=== PATIENT | male | born 1990 | race Caucasian/White ===

== ENCOUNTER 2016-05-21 19:43 | Emergency (ER) | payer SELFPAY ==
[2016-05-21 19:52] VITALS: RESP 16
[2016-05-21] MEDS ORDERED: Sodium Chloride 0.9% 1,000 ML IV ONE (19:56)
[2016-05-21] MEDS ORDERED: Sucralfate 1 gm/10 ml Oral Susp UD PO STA (19:56)
--- NOTE | 2016-05-21 19:57 | C.PDOC ---
History Of Present Illness 25 year old patient presents to the ED complaining of upper abdominal pain for the past 2 days. Patient states the pain is sharp and non-radiating. Patient denies nausea, vomiting, dysuria or hematuria. Time Seen by Provider: 05/21/16 19:55 Chief Complaint (Nursing): Abdominal Pain History Per: Patient History/Exam Limitations: no limitations Onset/Duration Of Symptoms: Days (2) Current Symptoms Are (Timing): Still Present Context: Other Severity: Moderate Pain Scale Rating Of: 4 Location Of Pain/Discomfort: Epigastric Radiation Of Pain To:: None Quality Of Discomfort: "Pain" Exacerbating Factors: None Alleviating Factors: None Last Bowel Movement: Today Recent travel outside of the [place]: No Past Medical History Reviewed: Historical Data, Nursing Documentation, Vital Signs Vital Signs: Last Vital Signs Temp 98.0 F 05/21/16 22:09 Pulse 60 05/21/16 22:09 Resp 16 05/21/16 22:09 BP 108/59 L 05/21/16 22:09 Pulse Ox 100 05/21/16 22:09 Family History: States: Unknown Family Hx - Social History Hx Tobacco Use: Yes Hx Alcohol Use: No Hx Substance Use: No - Immunization History Hx Tetanus Toxoid Vaccination: No Hx Influenza Vaccination: No Hx Pneumococcal Vaccination: No Review Of Systems Except As Marked, All Systems Reviewed And Found Negative. Gastrointestinal: Positive for: Abdominal Pain (epigastric). Negative for: Nausea, Vomiting Genitourinary: Negative for: Dysuria, Hematuria Physical Exam - Physical Exam Appears: Non-toxic, No Acute Distress Skin: Warm, Dry Head: Atraumatic, Normacephalic Eye(s): bilateral: Normal Inspection, PERRL, EOMI Neck: Normal ROM, Supple Chest: Symmetrical Cardiovascular: Rhythm Regular Respiratory: Normal Breath Sounds, No Rales, No Rhonchi, No Wheezing Gastrointestinal/Abdominal: Soft, Tenderness (bilateral epigastric ), No Guarding, No Rebound Back: Normal Inspection, No CVA Tenderness Extremity: Normal ROM Neurological/Psych: Oriented x3, Normal Speech, Normal Cognition Gait: Steady ED Course And Treatment - Laboratory Results Result Diagrams: 05/21/16 20:15 05/21/16 20:15 O2 Sat by Pulse Oximetry: 98 (RA) Pulse Ox Interpretation: Normal Progress Note: Plan: -Labs. -Bentyl, Carafate, Pepcid, IV fluids. Prorgress: Patient also c/o urethral discharge for the past few days. On examination, no discharge or sores noted. On reassessment, patient is resting comfortably, and is in no acute distress. Patient instructed to follow up with clinic/PMD within 1-2 days. Disposition Counseled Patient/Family Regarding: Diagnosis - Disposition Referrals: [facility] [Outside] Disposition: HOME/ ROUTINE Disposition Time: 21:03 Condition: STABLE Prescriptions: Doxycycline Hyclate 100 mg PO Q12 #14 tab Famotidine [Pepcid] 20 mg PO BID #30 tab Instructions: Gastritis (GEN), Nonspecific Urethritis in Men (ED) Forms: Work Excuse - POA Present On Arrival: None - Clinical Impression Clinical Impression: Abdominal pain, Gastritis, Urethritis - Scribe Statement The provider has reviewed the documentation as recorded by the Scribe Chelsie Sigala Provider Attestation: All medical record entries made by the Scribe were at my direction and personally dictated by me. I have reviewed the chart and agree that the record accurately reflects my personal performance of the history, physical exam, medical decision making, and the department course for this patient. I have also personally directed, reviewed, and agree with the discharge instructions and disposition.
[2016-05-21] MEDS ORDERED: Sodium Chloride 0.9% 1,000 ML ONE (20:17)
[2016-05-21 20:22] LABS: BASO % 0.3 % (0.0-2.0); EOS # 0.2 K/uL (0.0-0.7); EOS % 3.3 % (0.0-4.0); HEMATOCRIT 41.2 % (35.0-51.0); LYMPH # 1.9 K/uL (1.0-4.3); LYMPH % 26.9 % (20.0-40.0); MEAN CELL VOLUME 93.3 fL (80.0-94.0); MEAN CORPUSCULAR HEMOGLOBIN 31.6 pg (27.0-31.0); MEAN CORPUSCULAR HGB CONC 33.9 g/dL (33.0-37.0); MEAN PLATELET VOLUME 8.2 fL (7.2-11.7); MONO # 0.6 K/uL (0.0-0.8); MONO % 7.9 % (0.0-10.0); RED CELL DISTRIBUTION WIDTH 13.2 % (11.5-14.5); WHITE BLOOD COUNT 7.2 K/uL (4.8-10.8)
[2016-05-21 20:26] LABS: CHLORIDE 101 mmol/L (98-107)
[2016-05-21 20:27] LABS: POTASSIUM 3.9 mmol/L (3.6-5.2); SODIUM 139 mmol/L (132-148)
[2016-05-21 20:29] LABS: ALB/GLOB RATIO 1.6 (1.0-2.1); ALKALINE PHOSPHATASE 84 U/L (38-126); ALT/SGPT 37 U/L (21-72); AST/SGOT 30 U/L (17-59); BILIRUBIN,TOTAL 0.5 mg/dL (0.2-1.3); BLOOD UREA NITROGEN 18 mg/dL (9-20); CARBON DIOXIDE 25 mmol/L (22-30); GFR AFRICAN-AMERICAN > 60; TOTAL PROTEIN 6.5 g/dL (6.3-8.3)
[2016-05-21 20:30] LABS: CALCIUM 8.2 mg/dl (8.6-10.4); GLUCOSE,RANDOM 100 mg/dL (75-110)
[2016-05-21 20:42] LABS: RBC URINE 1 /hpf (0-3); URINE BILIRUBIN NEGATIVE (NEGATIVE); URINE BLOOD NEGATIVE (NEGATIVE); URINE COLOR Yellow (YELLOW); URINE GLUCOSE (UA) NORMAL (Normal); URINE KETONE NEGATIVE (NEGATIVE); URINE LEUKOCYTE ESTERASE NEG Leu/uL (Negative); URINE PROTEIN 1+ mg/dL (NEGATIVE); WBC URINE 3 /hpf (0-5)
[2016-05-21 22:10] VITALS: BP 108/59; PULSE 60; TEMP 98
[2016-05-21 22:18] VITALS: O2SAT 98
== END 2016-05-21 22:11 | disposition home or self-care (01) ==
LOC: C.ER 19:43
DX: K29.70 Gastritis, unspecified, without bleeding (principal); N34.2 Other urethritis; R10.13 Epigastric pain
CPT/HCPCS: 80053; 81001; 83690; 85025; 96365; 96372; 96375; 99285; J0500; J0696; J7040

== ENCOUNTER 2016-09-28 11:23 | Emergency (ER) | payer MEDICAID, OTHER ==
[2016-09-28 11:28] VITALS: BP 139/69; PULSE 83; RESP 16; TEMP 98.3; O2SAT 96
--- NOTE | 2016-09-28 11:52 | C.PDOC ---
History Of Present Illness L THUMB INJURY ONSET YEST WHILE @ WORK. PS THUMB ACCIDENTALLY EXTENDED BACKWARDS. PAIN AT BASE OF THUMB WORSE W MOVEMENT. DENIES OTHER ASSOC SX EXAM NAD EXT L HAND NO GROSS DEFORM. LIMITED ROM L MCP W GEN TEND. NO TEND DEF SKIN INTACT NO ERYTHEMA NEURO INTACT Time Seen by Provider: 09/28/16 11:45 Chief Complaint (Nursing): Finger,Hand,&Wrist History Per: Patient History/Exam Limitations: no limitations Onset/Duration Of Symptoms: Days Current Symptoms Are (Timing): Still Present Quality: "Pain" Exacerbating Factor(s): Movement Recent travel outside of the [place] States: No Past Medical History Reviewed: Historical Data, Nursing Documentation, Vital Signs Vital Signs: Last Vital Signs Temp 98.3 F 09/28/16 11:26 Pulse 83 09/28/16 11:26 Resp 16 09/28/16 11:26 BP 139/69 09/28/16 11:26 Pulse Ox 96 09/28/16 12:05 - Medical History PMH: No Chronic Diseases Family History: States: Unknown Family Hx - Social History Hx Tobacco Use: Yes Hx Alcohol Use: No Hx Substance Use: No - Immunization History Hx Tetanus Toxoid Vaccination: No Hx Influenza Vaccination: No Hx Pneumococcal Vaccination: No Review Of Systems Except As Marked, All Systems Reviewed And Found Negative. Constitutional: Negative for: Fever, Chills Musculoskeletal: Positive for: Hand Pain Skin: Negative for: Rash Neurological: Negative for: Weakness, Numbness Physical Exam - Physical Exam Appears: Non-toxic, No Acute Distress Skin: Warm, Dry Head: Atraumatic, Normacephalic Extremity: Capillary Refill (< 2 sec.), No Deformity, No Swelling, Other ( LIMITED ROM L MCP W GEN TEND. NO TEND DEF. SKIN INTACT NO ERYTHEMA. NEURO INTACT.) Extremity: Bilateral: Normal Color And Temperature Pulses: Left Radial: Normal, Right Radial: Normal Neurological/Psych: Oriented x3, Normal Motor, Normal Sensation ED Course And Treatment O2 Sat by Pulse Oximetry: 96 Pulse Ox Interpretation: Normal - Other Rad L THUMB X-Ray: Interpreted by Me (NEG) Disposition Counseled Patient/Family Regarding: Studies Performed, Diagnosis, Need For Followup - Disposition Referrals: [facility] [Outside] [facility] [Outside] Sara Hernandez MD [Staff Provider] - Disposition: HOME/ ROUTINE Disposition Time: 12:01 Condition: IMPROVED Additional Instructions: TAKE TYLENOL AND MOTRIN DIRECTED FOR PAIN. Instructions: Finger Sprain (ED) Forms: [facility] (Lithuanian) - Clinical Impression Clinical Impression: Thumb sprain - Scribe Statement The provider has reviewed the documentation as recorded by the Scribe All medical record entries made by the Scribe were at my direction and personally dictated by me. I have reviewed the chart and agree that the record accurately reflects my personal performance of the history, physical exam, medical decision making, and the department course for this patient. I have also personally directed, reviewed, and agree with the discharge instructions and disposition. Orthopedic Care Application Of:: Thumb Spica Splint (TroppinD Drimmi)
--- NOTE | 2016-09-28 12:40 | RAD ---
PROCEDURE: Left Thumb radiographs. HISTORY: trauma COMPARISON: None available. TECHNIQUE: AP radiograph of the left hand, as well as spot oblique and lateral images of thumb were obtained. FINDINGS: LEFT THUMB: Unremarkable left 1st digit without acute displaced fracture. Remainder of the left hand (as seen on the AP view) grossly unremarkable. JOINTS: No dislocation. SOFT TISSUES: Soft tissue swelling. No evidence of radiopaque foreign body. OTHER FINDINGS: None. IMPRESSION: Soft tissue swelling. No acute displaced fracture or dislocation identified.
== END 2016-09-28 12:41 | disposition home or self-care (01) ==
LOC: C.ER 11:23
DX: S63.602A Unspecified sprain of left thumb, initial encounter (principal); X58.XXXA Exposure to other specified factors, initial encounter

== ENCOUNTER 2017-03-13 18:39 | Emergency (ER) | payer SELFPAY ==
[2017-03-13 19:18] VITALS: BP 100/58; PULSE 83; RESP 20; TEMP 98.2; O2SAT 99
--- NOTE | 2017-03-13 20:38 | C.PDOC ---
History Of Present Illness 26 year old male presents to the ED for evaluation of diffuse back and rib pain after he sustained a fall yesterday. Patient states he fell backwards and sustained an injury to his ribs. He denies shortness of breath, urinary/bowel incontinence, extremity numbness/weakness, head injury/LOC. - HPI Time Seen by Provider: 03/13/17 19:20 Chief Complaint (Nursing): Trauma History Per: Patient History/Exam Limitations: no limitations Onset/Duration Of Symptoms: Hrs Location Of Injury: Anterior: Chest (ribs), Posterior: Back Additional History Per: Patient - Fall Fall:Prior To Injury: Other (fell backwards ) Past Medical History Reviewed: Historical Data, Nursing Documentation, Vital Signs Vital Signs: Last Vital Signs Temp 98.2 F 03/13/17 19:14 Pulse 83 03/13/17 19:14 Resp 20 03/13/17 19:14 BP 100/58 L 03/13/17 19:14 Pulse Ox 99 03/14/17 04:19 - Medical History PMH: No Chronic Diseases Surgical History: No Surg Hx Family History: States: Unknown Family Hx - Social History Hx Tobacco Use: Yes Hx Alcohol Use: No Hx Substance Use: No - Immunization History Hx Tetanus Toxoid Vaccination: No Hx Influenza Vaccination: No Hx Pneumococcal Vaccination: No Review Of Systems Genitourinary: Negative for: Incontinence Musculoskeletal: Positive for: Back Pain, Other (diffuse rib pain ) Neurological: Negative for: Weakness, Numbness Physical Exam - Physical Exam Appears: Non-toxic, No Acute Distress Skin: Normal Color, Warm, Dry, No Ecchymosis, No Other (crepitus ) Head: Atraumatic, Normacephalic Eye(s): bilateral: Normal Inspection Oral Mucosa: Moist Neck: Supple Chest: Symmetrical, No Deformity, Tenderness (minimal, to left chest wall on palpation ) Cardiovascular: Rhythm Regular, No Murmur Respiratory: Normal Breath Sounds, No Rales, No Rhonchi, No Wheezing Back: No CVA Tenderness, No Vertebral Tenderness Extremity: Normal ROM, Capillary Refill (less than 2 seconds ) Neurological/Psych: Oriented x3, Normal Speech, Normal Cognition, Normal Sensation Gait: Steady ED Course And Treatment O2 Sat by Pulse Oximetry: 99 (on RA) Pulse Ox Interpretation: Normal Progress Note: Left ribs and chest XR ordered. Results show no fracture, dislocations or pneumothorax. Motrin PO administered. On reassessment, patient is resting comfortably, showing no signs of distress and reports an improvement in his symtpoms. Patient is stable for discharge and is advised to follow up with PMD within 1-2 days for further evaluation. Reassessment Condition: Improved Disposition Counseled Patient/Family Regarding: Diagnosis, Need For Followup, Rx Given - Disposition Disposition: HOME/ ROUTINE Disposition Time: 20:34 Condition: STABLE Additional Instructions: Please follow up with PMD Take meds as directed Return to ER if worse Prescriptions: Ibuprofen [Motrin] 600 mg PO Q6H #20 tab Instructions: Muscle Strain (ED) Forms: [facility] (Pashto), Work Excuse - Clinical Impression Clinical Impression: Muscle strain, Rib pain, Back pain - PA / [employer] / Resident Statement MD/DO has reviewed & agrees with the documentation as recorded. - Scribe Statement The provider has reviewed the documentation as recorded by the Scribe (Zeinab Sigala) All medical record entries made by the Scribe were at my direction and personally dictated by me. I have reviewed the chart and agree that the record accurately reflects my personal performance of the history, physical exam, medical decision making, and the department course for this patient. I have also personally directed, reviewed, and agree with the discharge instructions and disposition.
--- NOTE | 2017-03-14 08:54 | RAD ---
PROCEDURE: Radiographs of the Chest and Left Ribs. HISTORY: pain, fall COMPARISON: None available. TECHNIQUE: Frontal radiograph of the chest and multiple oblique radiographs of the left ribs were obtained. FINDINGS: LEFT RIBS: No fracture or focal lesion visualized. LUNGS: No acute infiltrate identified bilaterally. PLEURA: No pneumothorax or pleural fluid. CARDIOVASCULAR: Normal sized heart. No pulmonary vascular congestion. OTHER FINDINGS: None. IMPRESSION: Unremarkable radiographs of the chest and left ribs. No left rib fracture.
== END 2017-03-13 20:53 | disposition home or self-care (01) ==
LOC: C.ER 18:39
DX: T14.8XXA Other injury of unspecified body region, initial encounter (principal); W19.XXXA Unspecified fall, initial encounter; R07.81 Pleurodynia; M54.9 Dorsalgia, unspecified; Z87.891 Personal history of nicotine dependence

== ENCOUNTER 2017-09-17 08:09 | Emergency (ER) | payer BC ==
[2017-09-17 08:51] VITALS: BMI 27.4
[2017-09-17 08:54] VITALS: BP 123/76; PULSE 77; RESP 18; TEMP 98.6; O2SAT 99
[2017-09-17] MEDS ORDERED: Naproxen 550 mg Tab PO STA (09:03)
--- NOTE | 2017-09-17 09:05 | C.PDOC ---
History Of Present Illness 26 yo male, presents with right 3rd digit pain s/p playing basketball yesterday. states "finger got jammed". also c/o of left sided dental pain x 3 days. no other compalint. Time Seen by Provider: 09/17/17 09:00 Chief Complaint (Nursing): Finger,Hand,&Wrist PMH Reviewed: Historical Data, Nursing Documentation, Vital Signs - Family History Family History: States: Unknown Family Hx - Immunization History Hx Tetanus Toxoid Vaccination: No Hx Influenza Vaccination: No Hx Pneumococcal Vaccination: No Review Of Systems ENT: Positive for: Other (dental pain) Pedatric Physical Exam - Physical Exam Eye(s): bilateral: Normal Inspection, PERRL, EOMI Teeth: Caries (left) Lymphatic: Deferred Gastrointestinal/Abdominal: Normal Exam Extremity: Left: Other ((+)3rd digit left mild tenderness swelling pain with rom. ) ED Course And Treatment O2 Sat by Pulse Oximetry: 99 Medical Decision Making Medical Decision Making: dental pain - no buccal swelling, will treat with amox, outpt fu finger injury - xr pending imaging neg. advise outpt fu Disposition - Disposition Referrals: [facility] [Outside] [facility] [Outside] Fabio Stiles MD [Staff Provider] - Disposition: HOME/ ROUTINE Disposition Time: 09:00 Condition: STABLE Additional Instructions: please see your doctor/dentist/specialist. return to er with worsening symptoms or concerns. Prescriptions: Amoxicillin [Amoxil 500 mg Cap] 500 mg PO TID #21 cap Naproxen [Naprosyn] 500 mg PO BID PRN #14 tablet PRN Reason: Pain, Mild (1-3) Instructions: Finger Sprain (DC), Jammed Finger Forms: [facility] (Occitan), Work Excuse - Clinical Impression Clinical Impression: Finger sprain, Pain, dental
[2017-09-17] MEDS ORDERED: Naproxen 550 mg Tab PO ONE (09:12)
--- NOTE | 2017-09-17 09:26 | RAD ---
PROCEDURE: Right Hand Radiographs. HISTORY: trauma COMPARISON: None. FINDINGS: BONES: Normal. No fracture. JOINTS: Normal. No osteoarthritic changes. SOFT TISSUES: Normal. OTHER FINDINGS: None. IMPRESSION: Normal right hand radiographs.
== END 2017-09-17 09:41 | disposition home or self-care (01) ==
LOC: C.ER 08:09
DX: S63.612A Unspecified sprain of right middle finger, initial encounter (principal); W23.0XXA Caught, crushed, jammed, or pinched between moving objects, initial encounter; Y93.67 Activity, basketball; Y92.39 Other specified sports and athletic area as the place of occurrence of the external cause; K08.89 Other specified disorders of teeth and supporting structures

== ENCOUNTER 2018-01-28 05:47 | Emergency (ER) | payer OTHER, BC ==
[2018-01-28 05:56] VITALS: RESP 18
[2018-01-28 06:00] VITALS: BMI 24.3
--- NOTE | 2018-01-28 06:43 | C.PDOC ---
History Of Present Illness 27 year old male presents to the ED c/o right foot pain. Patient reports that while at work he was run over by a forklift. Patient denies fever, chills, weakness, numbness, other injury, fall, trauma. Time Seen by Provider: 01/28/18 06:22 Chief Complaint (Nursing): Lower Extremity Problem/Injury History Per: Patient History/Exam Limitations: no limitations Onset/Duration Of Symptoms: Hrs Current Symptoms Are (Timing): Still Present Recent travel outside of the [place] States: No Additional History Per: Patient - Ankle/Foot Description Of Injury: Struck With Object Currently Unable To: Bend Or Move Past Medical History Reviewed: Historical Data, Nursing Documentation, Vital Signs Vital Signs: Last Vital Signs Temp 98.4 F 01/28/18 05:56 Pulse 78 01/28/18 05:56 Resp 18 01/28/18 05:56 BP 124/76 01/28/18 05:56 Pulse Ox 97 01/28/18 05:56 - Medical History PMH: No Chronic Diseases Surgical History: No Surg Hx Family History: States: Unknown Family Hx - Social History Hx Tobacco Use: Yes Hx Alcohol Use: No Hx Substance Use: No - Immunization History Hx Tetanus Toxoid Vaccination: No Hx Influenza Vaccination: No Hx Pneumococcal Vaccination: No Review Of Systems Constitutional: Negative for: Fever, Chills Cardiovascular: Negative for: Chest Pain, Palpitations Respiratory: Negative for: Cough, Shortness of Breath Gastrointestinal: Negative for: Nausea, Vomiting, Abdominal Pain Musculoskeletal: Positive for: Leg Pain, Foot Pain Skin: Negative for: Rash Neurological: Negative for: Weakness, Numbness, Headache Physical Exam - Physical Exam Appears: Non-toxic, No Acute Distress Skin: Warm, Dry Head: Normacephalic Eye(s): bilateral: Normal Inspection Oral Mucosa: Moist Neck: Supple Chest: Symmetrical Cardiovascular: Rhythm Regular Respiratory: No Rales, No Rhonchi, No Wheezing Extremity: No Normal ROM (limited right foot due to pain), Tenderness (right ankle and foot), Capillary Refill (< 2 seconds), Swelling (right ankle) Neurological/Psych: Oriented x3, Normal Speech, Normal Cognition, Normal Motor, Normal Sensation Gait: With Assistance ED Course And Treatment O2 Sat by Pulse Oximetry: 97 (ON RA) Pulse Ox Interpretation: Normal Progress Note: Plan: - CT lower extremity. - Right foot X-Ray. - Right ankle X-Ray. - Tylenol 975 mg PO Disposition Counseled Patient/Family Regarding: Studies Performed, Diagnosis - Disposition Disposition Time: 06:43 Condition: FAIR Forms: [facility] (Mohawk) - Clinical Impression Clinical Impression: Ankle pain - Scribe Statement The provider has reviewed the documentation as recorded by the Scribe Cruzito Parker All medical record entries made by the Scribe were at my direction and personally dictated by me. I have reviewed the chart and agree that the record accurately reflects my personal performance of the history, physical exam, medical decision making, and the department course for this patient. I have also personally directed, reviewed, and agree with the discharge instructions and disposition. Physician Patient Turnover Patient Signed Over To: Alexander Ryder DO Handoff Comments: pending ct
--- NOTE | 2018-01-28 09:43 | RAD ---
Date of service: 01/28/2018 PROCEDURE: Right Ankle Radiographs. HISTORY: deformity COMPARISON: None available. FINDINGS: BONES: Normal. No fracture. JOINTS: There is a small joint effusion. Ankle mortise maintained. Talar dome intact SOFT TISSUES: There is moderate periarticular soft tissue swelling, worse medially. OTHER FINDINGS: None. IMPRESSION: No acute fracture or dislocation. Small joint effusion and moderate periarticular soft tissue swelling, worse medially.
--- NOTE | 2018-01-28 10:31 | RAD ---
Date of service: 01/28/2018 PROCEDURE: Right Foot Radiographs. HISTORY: deformity COMPARISON: None. FINDINGS: BONES: Bone alignment and mineralization are normal. There is no acute displaced fracture or bone destruction. JOINTS: Normal. SOFT TISSUES: Normal. OTHER FINDINGS: None. IMPRESSION: No acute fracture or dislocation.
--- NOTE | 2018-01-28 12:12 | CT ---
Date of service: 01/28/2018 PROCEDURE: CT of the right ankle HISTORY: Run over by forklift: ankle and foot COMPARISON: Correlation made with radiographs of the ankle obtained earlier same day TECHNIQUE: Contiguous axial images of the right ankle were obtained. Coronal and sagittal reformats were generated. Radiation dose: Total exam DLP = 451.08 mGy-cm. This CT exam was performed using one or more of the following dose reduction techniques: Automated exposure control, adjustment of the mA and/or kV according to patient size, and/or use of iterative reconstruction technique. FINDINGS: The current study reveals no definitive radiographic evidence of acute displaced fracture nor dislocation. The osseous structures appear intact. BONES: Unremarkable. No fracture or focal lesion. Femoral head maintains normal contour. Right hip joint spaces preserved with no evidence of significant osteoarthritis. SOFT TISSUES: There is moderate mild bilateral soft tissue swelling.. One or 2 tiny bubbles of gas within the soft tissues adjacent to the medial malleolus suspected. The IMPRESSION: No evidence of acute displaced fracture nor dislocation. Moderate bilateral soft tissue swelling.
[2018-01-28 12:52] VITALS: BP 111/72; PULSE 70; TEMP 98.2; O2SAT 100
== END 2018-01-28 13:05 | disposition home or self-care (01) ==
LOC: C.ER 05:47
DX: M25.571 Pain in right ankle and joints of right foot (principal)